=== PATIENT | male | born 1950 | race Caucasian/White ===

== ENCOUNTER 2021-04-27 08:24 | Day surgery (SDC) | payer OTHER ==
[2021-04-24 16:14] VITALS: BMI 24.0
[2021-04-27] MEDS ORDERED: BUPIVACAINE HCL 50 ML ONE (10:01)
[2021-04-27] MEDS ORDERED: LIDOCAINE HCL 1%, 10 MG/ML (20ML VIAL) ONE (10:01)
[2021-04-27] MEDS ORDERED: PROMETHAZINE HCL 25 MG/1 ML VIAL IVPUSH PRN (10:07)
[2021-04-27] MEDS ORDERED: oxyCODONE HCL 5 MG TABLET PO PRN (10:07)
[2021-04-27] MEDS ORDERED: ONDANSETRON 4 MG/2 ML VIAL IVPUSH PRN (10:07)
[2021-04-27] MEDS ORDERED: MIDAZOLAM HCL 2 MG/2 ML SINGLE DOSE VIAL ONE (10:11)
[2021-04-27] MEDS ORDERED: LACTATED RINGERS SOLUTION 1,000 ML IV SCH (10:15)
[2021-04-27 11:31] VITALS: TEMP 97.6
[2021-04-27 12:01] VITALS: BP 136/73; PULSE 72
== END 2021-04-27 12:16 | disposition home or self-care (01) ==
LOC: FASU 08:24
PROVIDERS: ATTEND Orthopaedic Surgery
PROC: 0LN70ZZ Release Right Hand Tendon, Open Approach (ICD-10-PCS; principal; 2021-04-27 10:28)
DX: M65.341 Trigger finger, right ring finger (principal)
CPT/HCPCS: 88304-TC; 94760